=== PATIENT | female | born 1950 | race Caucasian/White ===

== ENCOUNTER 2016-10-04 08:18 | Emergency (ER) | payer MEDICARE, MEDICAID ==
[~2016-10-04] VITALS: Ht 167.6 cm; Wt 109.1 kg
[~2016-10-04 08:18] MED LIST: ACYC400T2 PO; CHOL100045 PO; CHOL400T41 PO; DOCU250C2 PO; DOCU50LI PO; FLUC150T48 PO; GABA400C PO; LAM100 PO; LAMO200T PO; LISI10TA2 PO; MICO14CR6 TP; MICO71PO TP; MICONAZOLE TOP; OXB5T PO; OXYB5SYR2 PO; TOPI200T14 PO; TOPI200T17 PO; ZEASORB TOP
[2016-10-04 08:26] VITALS: BP 151/72; PULSE 94; RESP 18; O2SAT 97
--- NOTE | 2016-10-04 08:37 | ED.REPORT ---
HPI-Trauma Minor / Fall Date of Service Oct 04, 2016 ED Provider: Chavez Garcia MD A 66 year old female with a history of with a history of cerebral palsy, seizure disorder and a right frontal craniotomy presents to the ED via EMS complaining of headache secondary to a ground level fall that occurred at 0800 this morning. Patient states that she was attempting to open her bedroom door when she tripped. She reports that she hit the back of her head during the fall. She denies LOC, vomiting or any other pain at this time. Patient is not currently on any anticoagulates. Nursing Notes Stated Complaint: GLF Chief Complaint: Head, Face, Neck Trauma Nursing Notes Reviewed: Yes Allergies: Coded Allergies: Sulfa (Sulfonamide Antibiotics) (Verified Allergy, Mild, Rash, 07/05/16) Scheduled ([zeasorb powder]) TOP BID Acyclovir (Acyclovir) 400 Mg Tablet 400 MG PO BID CHOLECALCIFEROL-Expunged Drug, Do Not Renew! (VITAMIN D-Expunged Drug, Do Not Renew!) 400 Unit Tablet 2,000 UNIT PO DAILY Cholecalciferol (Vitamin D3) (Vitamin D) 1,000 Unit Capsule 1,000 UNIT PO DAILY Docusate Sod-Expunged Drug, Do Not Renew! (Docusate Sod-Expunged Drug, Do Not Renew!) 50 Mg/5 Ml Liquid 100 MG PO DAILY Fluconazole (Diflucan) 150 Mg Tablet 150 MG PO ONCE Gabapentin (Neurontin) 400 Mg Capsule 400 MG PO DAILY Lamotrigine (Lamictal) 200 Mg Tablet 200 MG PO DAILY Lisinopril (Lisinopril) 10 Mg Tablet 10 MG PO DAILY Oxybutynin Chloride Liquid (Oxybutynin Chloride Liquid) 5 Mg/5 Ml Syrup 5 MG PO TID Oxybutynin-Expunged Drug, Do Not Renew! (DITROPAN-Expunged Drug, Do Not Renew!) 5 Mg Tab 2.5 MG PO BID Topiramate (Topamax) 200 Mg Tablet 200 MG PO BID Topiramate-Expunged Drug, Do Not Renew! (Topiramate-Expunged Drug, Do Not Renew! ) 200 Mg Tablet 200 MG PO DAILY lamoTRIgine-Expunged Drug, Do Not Renew! (Lamictal-Expunged Drug, Do Not Renew! ) 100 Mg Tablet 200 MG PO BID Scheduled PRN ([miconazole cream]) TOP BID PRN PRN Docusate Sodium (Docusate Sodium) 250 Mg Capsule 250 MG PO DAILY PRN PRN For Constipation Miscellaneous Medications Miconazole Nitrate (Miconazorb AF) 71 Gm Powder 71 GM TP Miconazole Nitrate (Micatin) 14 Gm Cream..g. 14 GM TP General Time Seen by MD: 08:33 Chief Complaint Fall Hx Obtained From: Patient Arrived By: Ambulance Onset Occurred: 1 - 4 hours ago (0800) Symptom Duration: Since onset Caused by: Accidental, Fall on ground Location: Head Quality: Aching Severity: Current: Mild Severity: Maximum: Moderate Associated with: Denies: Loss of consciousness, Vomiting Pertinent Negative: Pt denies other symptoms Recent Healthcare: No recent doctor visit, No recent hospitalization Risk Factors Head CT Imaging Patient Presents WITHOUT: Loss of Conciousness Consider Non Contrast CT for: >/= 60 yo AgeNo Fall Down Steps >/= 5, No Focal Neuro Deficit, No Vomiting, No WITHOUT LOC RF Statements: Risk factors reviewed Past Medical History Past Medical History Kidney stones (last CT 2012) Seizure disorder Sleep apnea Cerebral Palsy Reports: Hypertension Past Surgical History Lumpectomy Right frontal craniotomy Reports: Tubal ligation Smoking History Never Smoker Social History [facility] in [facility] center Alcohol Use: Denies alcohol use Other Social History: Good social support, Local resident Ambulatory Status Walker Review of Systems Constitutional: Denies: Chills, Fever Respiratory: Denies: Shortness of breath Musculoskeletal: Denies: Back pain, Neck pain Neurologic: Reports: Headache, Denies: Change LOC Complete sys rev & neg: except as marked. Cardiovascular: Denies: Chest pain GI: Denies: Abdominal pain, Nausea, Vomiting Physical Exam Initial Vital Signs Vital Signs (First) Date Time Temp Pulse Resp B/P Pulse Ox O2 Delivery O2 Flow Rate FiO2 10/04/16 08:26 36.6 94 18 151/72 97 Room Air Initial VS: Reviewed Extremities: Vascular intact, Neuro intact, No swelling, No tenderness Skin: Warm, Dry, No cyanosis Psychiatric: Mood/affect normal, Behavior normal, Normal thought content General/Constitutional: Awake, Alert, No acute distress Neck: Atraumatic, Supple, Full range of motion, No midline vertebral tend Head / Eyes: Normocephalic, PERRL Trauma - General: Positive: Laceration (2 cm laceration to the posterior scalp ) Respiratory / Chest: Atraumatic, Breath sounds NL, Breath sounds = bilat Cardiovascular: Heart rate NL, Regular rhythm, Heart sounds NL, No murmurs, Peripheral circulation NL (No lower extremity edema ) Abdomen: Atraumatic, Soft, Non-tender Back: Atraumatic, Inspection NL, Non-tender, No CVA tenderness Neurologic: Oriented X3, Speech NL, No motor deficits, No sensory deficits, CN II - XII intact Interpretation & Diagnostics CT Head Interpretation IMPRESSION: No acute intracranial abnormalities, status post remote right frontal cranioplasty and extensive right frontal lobe resection. Dictated by: Van Sherman M.D. on 10/04/2016 at 9:40 Study: Head CT no contrast Interpretation / Wet Read by: Interpret - ED physician CT C-Spine Interpretation IMPRESSION: No acute bony injuries of the cervical and upper thoracic spine from the foramen magnum to the T4 level. Dictated by: Van Sherman M.D. on 10/04/2016 at 9:36 Study type: CT no contrast Interpretation / Wet Read by: Interpret - Radiologist Procedures Laceration Management Time: 10:08 Procedure Performed by: ED physician Consent / Setup / Site Prep: Consent from patient, Time-out performed, Hand hygiene observed, Stand sterile technique Location of Wound: Posterior scalp Wound Length: 2 cm Repair Skin: [place] # Sutures - Skin: 3 Post-Procedure / Complications: No complications, Condition improved, Tolerated procedure well, Patient stable Re-Eval/Medical Decision Med Decision/Clinical Course 66-year-old female history of cerebral palsy, seizure disorder presenting status post mechanical ground-level fall hitting the back of her head. Complaining of headache and neck pain. She has no neurological deficits. No loss of consciousness. CT brain and CT C-spine no acute pathology. Her 2 cm laceration posterior scalp was irrigated with copious normal saline and repaired with 3 sammy. Discharge home with follow-up with primary doctor for staple removal one week. Return precautions given. Counseled caregiver. Re-Evaluation/Progress : Time of Eval: 10:08 Patient Status: Condition improved Re-Evaluation/Progress Note: Patient is rechecked. Laceration is managed. She tolerates the procedure well and reports that her headache is improved. Patient is informed of her CT results and diagnosis. All questions are addressed. She understands and agrees with the treatment plan. Counseled Regarding: Diagnosis, Need for follow-up, When/why to return to ED Discharge & Departure Impression: Primary Impression: Laceration of head Encounter type: initial encounter Location of open wound of head: other part of head Foreign body presence: without foreign body Qualified Code: S01.81XA - Laceration without foreign body of other part of head, initial encounter Additional Impression: Head trauma Encounter type: initial encounter Qualified Code: S09.90XA - Unspecified injury of head, initial encounter Disposition: Home Discharge Condition All VS Reviewed: Yes Condition: Stable Patient Instructions: Concussion (ED), Minor Head Injury (ED) Additional Instructions: Thank you for trusting us with your care this morning. Your head CT is reassuring that there is no dangerous cause for concern at this time, however, I believe you may have experienced a concussion. You may experience mild headache or fogginess for the next month. Return to the ED or follow up with your primary care physician in one week to have your sammy removed. Please return to the emergency department for any new or worsening conditions including worsening headache, vomiting, dizziness, lightheadedness or signs of infection including any swelling, redness or pus. Referrals: Nora Carrillo MD (PCP) Scribe Attestation Portions of this note were transcribed by Sade Sharma. I, Dr. Garcia personally performed the history, physical exam and medical decision-making; I reviewed and confirmed the accuracy of the information in the transcribed note. Signed by: Mau Chin, 10/04/16 1020. copies to: Nora Carrillo MD, Ben M MD Oct 04, 2016 08:37 SADE SHARMA Oct 04, 2016 08:53
--- NOTE | 2016-10-04 09:41 | DRSVH ---
PROCEDURE: CT CERVICAL SPINE WITHOUT CONTRAST ([id number]) INDICATIONS: 66 year-old female with wheezing ground level fall. TECHNIQUE: Noncontrast 3 mm thick sections acquired from the skull base to the T4 level. Sagittal and coronal r eformats were then constructed. For radiation dose reduction, the following was used: automated exp osure control, adjustment of mA and/or kV according to patient size. COMPARISON: None. FINDINGS: Image quality: Excellent. Bones: No fractures or dislocations. The coronal images demonstrate right convex curvature of the c ervical spine, possibly positional. There is multilevel cervical spine disc and facet joint degenerat ion. Visualized superior ribs are intact. Soft tissues: Prevertebral soft tissues are normal in thickness. No paravertebral hematomas. No ap ical pneumothoraces. IMPRESSION: No acute bony injuries of the cervical and upper thoracic spine from the foramen magnum t o the T4 level. Dictated by: Van Sherman M.D. on 10/04/2016 at 9:36 Approved by: Van Sherman M.D. on 10/04/2016 at 9:40
--- NOTE | 2016-10-04 09:45 | DRSVH ---
PROCEDURE: CT BRAIN WITHOUT CONTRAST ([id number]) INDICATIONS: 66 year-old female with ground level fall and posterior head trauma. TECHNIQUE: Noncontrast 4.5 mm thick angled axial sections acquired from the foramen magnum to the vertex, with c oronal reformats. COMPARISON: [facility], CT, CT BRAIN WO CON, 07/05/2016, 9:30. FINDINGS: Image quality: Excellent. CSF spaces: Basal cisterns are patent. No suspicious extra-axial fluid collections. Ventricles are normal in size and shape. Brain: No midline shift. No intracranial masses or hemorrhage. Patient is status post right fronta l lobe resection as before, with postoperative encephalomalacia. Baires-white matter interface is sandie l. Skull and face: Patient is status post extensive right frontal cranioplasty as before. Remaining calv arium and visualized facial bones are intact, without suspicious lesions. Sinuses: Visualized sinuses and mastoids are clear. IMPRESSION: No acute intracranial abnormalities, status post remote right frontal cranioplasty and ex tensive right frontal lobe resection. Dictated by: Van Sherman M.D. on 10/04/2016 at 9:40 Approved by: Van Sherman M.D. on 10/04/2016 at 9:44
== END 2016-10-04 10:34 | disposition home or self-care (01) ==
LOC: SED 08:18
DX: S01.01XA Laceration without foreign body of scalp, initial encounter (principal); W01.10XA Fall on same level from slipping, tripping and stumbling with subsequent striking against unspecified object, initial encounter; Y92.009 Unspecified place in unspecified non-institutional (private) residence as the place of occurrence of the external cause; Y93.89 Activity, other specified; Y99.8 Other external cause status; G80.9 Cerebral palsy, unspecified; G40.909 Epilepsy, unspecified, not intractable, without status epilepticus; I10 Essential (primary) hypertension; Z98.890 Other specified postprocedural states; Z87.442 Personal history of urinary calculi; Z88.2 Allergy status to sulfonamides